=== PATIENT | female | born 1990 ===

== ENCOUNTER → 2017-06-28 | Outpatient (CLI) | payer BC, OTHER ==
[2017-06-28 18:12] LABS: ALBUMIN 3.3 gm/dl (3.4-5.0); ALT/SGPT 19 U/L (12-78); BLOOD UREA NITROGEN 15 mg/dl (7-18); CALCIUM 9.5 mg/dl (8.5-10.1); CARBON DIOXIDE 22 mmol/L (21-32); CHOLESTEROL 152 mg/dl (0-200); GLUCOSE 138 mg/dl (70-99); POTASSIUM 3.9 mmol/L (3.5-5.1); SODIUM 136 mmol/L (136-145)
[2017-06-28 18:23] LABS: ALKALINE PHOSPHATASE 106 U/L (45-117); AST/SGOT 7 U/L (15-37); LDL CHOLESTEROL CALCULATED 68 mg/dl; TOTAL PROTEIN 7.9 gm/dl (6.4-8.2)
[2017-06-29 07:15] LABS: HEMOGLOBIN A1C 11.9 % (4.5-5.6)
== END | disposition home or self-care (01) ==
LOC: C.LAB1850 16:24
PROVIDERS: ATTEND Physician Assistant
DX: E10.65 Type 1 diabetes mellitus with hyperglycemia (principal)

== ENCOUNTER → 2017-09-14 | Outpatient (CLI) | payer BC, OTHER ==
[2017-09-15 07:03] LABS: HEMOGLOBIN A1C 9.4 % (4.5-5.6)
== END | disposition home or self-care (01) ==
LOC: C.LABMFLN 15:39
PROVIDERS: ATTEND Physician Assistant
DX: E10.65 Type 1 diabetes mellitus with hyperglycemia (principal)